=== PATIENT | male | born 1980 | race American Indian/Alaskan Native ===

== ENCOUNTER 2022-08-06 12:45 | Emergency (ER) | payer OTHER ==
[2022-08-06] MEDS ORDERED: AMOX TR/POT CLAV 875MG/125MG TABLETS (FP) PO ONE (13:19)
[2022-08-06 13:28] VITALS: BP 143/91; PULSE 93; RESP 20; TEMP 98.6; BMI 25.7
[2022-08-06] MEDS ORDERED: AMOX TR/POT CLAV 875MG/125MG TABLETS (FP) ONE (13:43)
[2022-08-06] MEDS ORDERED: IBUPROFEN 600 MG TABLET (FP) PO ONE ×2 (14:13→14:18)
== END 2022-08-06 14:34 | disposition home or self-care (01) ==
LOC: FER 12:45
PROC: 0HQMXZZ Repair Right Foot Skin, External Approach (ICD-10-PCS; principal; 2022-08-06)
DX: S91.311A Laceration without foreign body, right foot, initial encounter (principal)
CPT/HCPCS: 73630-TC-RT-FY; 99284-25

== ENCOUNTER 2022-08-07 16:00 | Emergency (ER) | payer OTHER ==
[2022-08-07 16:25] VITALS: BP 120/86; PULSE 64; RESP 16; TEMP 98.1; BMI 25.4
[2022-08-07] MEDS ORDERED: IBUPROFEN 400 MG TABLET (FP) PO ONE ×2 (16:26→16:27)
== END 2022-08-07 16:35 | disposition home or self-care (01) ==
LOC: FER 16:00
DX: Z48.00 Encounter for change or removal of nonsurgical wound dressing (principal)
CPT/HCPCS: 99283-25

== ENCOUNTER 2022-08-17 11:01 | Emergency (ER) | payer OTHER ==
[2022-08-17 11:06] VITALS: BP 130/89; PULSE 82; RESP 20; TEMP 97.8; BMI 24.7
== END 2022-08-17 11:53 | disposition home or self-care (01) ==
LOC: FER 11:01
DX: Z48.02 Encounter for removal of sutures (principal)
CPT/HCPCS: 99281-25

== ENCOUNTER 2023-12-15 20:04 | Emergency (ER) | payer OTHER ==
[2023-12-15] MEDS ORDERED: TETRACAINE 0.5% OPHTH SOLN 2 ML BOTTLE ONE (20:09)
[2023-12-15] MEDS ORDERED: FLUORESCEIN NA 1 EA STRIP ONE ×2 (20:35→20:36)
[2023-12-15 20:40] VITALS: BP 134/83; PULSE 94; RESP 16; TEMP 98.5; BMI 24.7
[2023-12-15] MEDS ORDERED: ERYTHROMYCIN 0.5% OPHTHALMIC OINTMENT 3.5 GM TUBE ONE (20:41)
[2023-12-15] MEDS: ERYTHROMYCIN 0.5% OPHTHALMIC OINTMENT 3.5 GM TUBE OU ONE (20:45)
[2023-12-16] MEDS ORDERED: ERYTHROMYCIN 0.5% OPHTHALMIC OINTMENT 3.5 GM TUBE OS ONE (20:45)
[2023-12-16] MEDS ORDERED: ERYTHROMYCIN 0.5% OPHTHALMIC OINTMENT 3.5 GM TUBE OD ONE (20:45)
== END 2023-12-15 21:15 | disposition home or self-care (01) ==
LOC: FER 20:04
DX: H57.13 Ocular pain, bilateral (principal); H11.423 Conjunctival edema, bilateral
CPT/HCPCS: 99283-25